=== PATIENT | female | born 1975 | race Caucasian/White ===

== ENCOUNTER → 2018-10-21 | Outpatient (CLI) | payer BC | LOC: FIMAGING 07:48 | PROVIDERS: ATTEND Orthopaedic Surgery | DX: Z01.818 Encounter for other preprocedural examination (principal); M16.11 Unilateral primary osteoarthritis, right hip ==

== ENCOUNTER 2018-11-03 06:00 | Inpatient (IN) | payer BC ==
[~2018-11-03 06:00] MED LIST: ROPIVACAINE 0.2% 80 MG, EPINEPHrine 0.2 MG, KETOROLAC TROMETHAMINE 30 MG in SYRINGE 0 ML IU ONE; TRANEXAMIC ACID 3,000 MG in NS (SYRINGE) 50 ML IRR ONE
--- NOTE | 2018-11-03 06:17 | PDHPUP ---
History & Physical Update H&P update statement: This history and physical update is based on an assessment of the patient which was completed after admission or registration (within 24 hours), but prior to the surgery/procedure. H&P update: H&P reviewed & patient examined, no change in patient's condition since H&P completed
[2018-11-03] MEDS ORDERED: DEXAMETHASONE 4 MG/ML VIAL IVP ONE (06:47)
[2018-11-03] MEDS ORDERED: FAMOTIDINE 20 MG TAB PO ONE (06:47)
[2018-11-03] MEDS ORDERED: ACETAMINOPHEN 325 MG TAB PO ONE (06:47)
[2018-11-03] MEDS ORDERED: ceFAZolin 2 GM/DEXTROSE 100 ML IV ONE (06:47)
[2018-11-03] MEDS ORDERED: LR 1,000 ML IV ONE (06:47)
[2018-11-03] MEDS ORDERED: TRANEXAMIC ACID 3,000 MG/50 ML BAG IRR ONE (06:57)
--- NOTE | 2018-11-03 07:22 | PDANEPAE ---
ANE Past Medical History - Cardiovascular History Hx Hypertension: No Hx Arrhythmias: No Hx Chest Pain: No Hx Coronary Artery / Peripheral Vascular Disease: No Hx CHF / Valvular Disease: No Hx Palpitations: No - Pulmonary History Hx COPD: No Hx Asthma/Reactive Airway Disease: No Hx Recent Upper Respiratory Infection: No Hx Oxygen in Use at Home: No Hx Sleep Apnea: No Sleep Apnea Screening Result - Last Documented: Negative - Neurologic History Hx Cerebrovascular Accident: No Hx Seizures: No Hx Dementia: No - Endocrine History Hx Diabetes: No - Renal History Hx Renal Disorders: No - Liver History Hx Hepatic Disorders: No - Neurological & Psychiatric Hx Hx Neurological and Psychiatric Disorders: No - Cancer History Hx Cancer: No - Congenital Disorder History Hx Congenital Disorders: No - GI History Hx Gastrointestinal Disorders: No - Other Health History Other Health History: none - Chronic Pain History Chronic Pain: No - Surgical History Prior Surgeries: right hip labral repair 2014 LI Review of Systems Review of Systems: - Exercise capacity METS (RN): 6 METS ANE Patient History - Allergies Allergies/Adverse Reactions: No Known Allergies Allergy (Unverified 10/14/18 11:58) - Home Medications Home Medications: Herbals/Supplements -Info Only 1 ea PO DAILY 10/14/18 [Last Taken 10/20/18] Ibuprofen [Motrin (*)] 400 mg PO DAILY PRN 10/14/18 [Last Taken 10/20/18] Multivitamins [Multivitamin (*)] 1 each PO DAILY 10/14/18 [Last Taken 10/20/18] [place]-3 Fatty Acids [Fish Oil 1000 mg (*)] 1,000 mg PO DAILY 10/14/18 [Last Taken 10/20/18] - NPO status NPO Since - Liquids (Date): 11/03/18 NPO Since - Liquids (Time): 04:00 NPO Since - Solids (Date): 11/02/18 - Smoking Hx Smoking Status: Never smoked - Family Anes Hx Family Hx Anesthesia Complications: none ANE Labs/Vital Signs - Vital Signs Blood Pressure: 101/69 Heart Rate: 60 Respiratory Rate: 15 O2 Sat (%): 98 Height: 160.02 cm Weight: 55.792 kg ANE Physical Exam - Airway Mallampati Score: Class 2 - ASA Status ASA Status: I ANE Anesthesia Plan Anesthesia Plan: spinal
[2018-11-03] MEDS ORDERED: MIDAZOLAM 2 MG/2 ML VIAL ONE (07:38)
[2018-11-03] MEDS ORDERED: PROPOFOL/EMULSION 500 MG/50 ML BOTTLE IV ONE (07:39)
[2018-11-03] MEDS ORDERED: fentaNYL 100 MCG/2 ML INJ ONE ×2 (07:39→09:39)
[2018-11-03] MEDS ORDERED: PHENYLEPHRINE 10 MG/ML SDV ONE (07:40)
[2018-11-03] MEDS ORDERED: ONDANSETRON 4 MG/2 ML VIAL ONE (07:40)
[2018-11-03] MEDS ORDERED: BUPIVACAINE/DEXTROSE 7.5MG/ML 2 ML SPINAL AMP SP ONE (07:41)
[2018-11-03] MEDS ORDERED: PROPOFOL 200 MG/20 ML VIAL ONE (09:05)
[2018-11-03] MEDS ORDERED: BISACODYL 10 MG SUPP PR PRN (09:30)
[2018-11-03] MEDS ORDERED: ONDANSETRON 4 MG/2 ML VIAL IVP PRN ×2 (09:30→09:35)
[2018-11-03] MEDS ORDERED: oxyCODONE IR 5 MG TAB PO PRN (09:30)
[2018-11-03] MEDS ORDERED: LACTULOSE 20 GM/30 ML UDCUP PO PRN (09:30)
[2018-11-03] MEDS ORDERED: PROMETHAZINE HCL 25 MG/ML INJ IVP PRN ×2 (09:30→09:35)
[2018-11-03] MEDS ORDERED: TEMAZEPAM 15 MG CAP PO PRN (09:30)
[2018-11-03] MEDS ORDERED: METOCLOPRAMIDE 10 MG/2 ML VIAL IVP PRN (09:30)
[2018-11-03] MEDS ORDERED: DIPHENOXYLATE/ATROPINE LOMOTIL 1 TAB PO PRN (09:30)
[2018-11-03] MEDS ORDERED: PROMETHAZINE HCL 25 MG SUPPR PR PRN (09:30)
[2018-11-03] MEDS ORDERED: LR 1,000 ML IV SCH (09:30)
[2018-11-03] MEDS ORDERED: CYCLOBENZAPRINE 10 MG TAB PO PRN (09:30)
[2018-11-03] MEDS ORDERED: POLYETHYLENE GLYCOL 3350 17 GM PKT PO PRN (09:30)
[2018-11-03] MEDS ORDERED: MAGNESIUM HYDROXIDE 30 ML UDCUP PO PRN (09:30)
[2018-11-03] MEDS ORDERED: diphenhydrAMINE 25 MG CAP PO PRN (09:30)
[2018-11-03] MEDS ORDERED: ONDANSETRON DISINTEGRATING 4 MG TAB PO PRN (09:30)
--- NOTE | 2018-11-03 09:30 | POSTOPPROG ---
Post Op Note Date of Operation: 11/03/18 Surgeon: Nan España Warehouse Distribution Manager: nicci españa PA-C Anesthesiologist: dr. cifuentes Anesthesia: Spinal Pre-op Diagnosis: right hip OA Post-op Diagnosis: same Indication: right hip pain Procedure: R LIDA ant approach, robot assisted Findings: severe hip OA Inf/Abcess present in the surg proc area at time of surgery?: No EBL: 100-500
[2018-11-03] MEDS ORDERED: NALOXONE HCL 0.4 MG/ML INJ IVP PRN (09:35)
[2018-11-03] MEDS ORDERED: DEXAMETHASONE 4 MG/ML VIAL IVP PRN (09:35)
[2018-11-03] MEDS ORDERED: LR 500 ML IV PRN (09:35)
[2018-11-03] MEDS ORDERED: HYDROmorphONE/DILAUDID 2 MG/ML INJ IVP PRN (09:35)
[2018-11-03] MEDS ORDERED: PHENYLEPHRINE HCL 100 MCG/ML SYR IVP PRN (09:35)
[2018-11-03] MEDS ORDERED: fentaNYL 100 MCG/2 ML INJ IVP PRN (09:35)
--- NOTE | 2018-11-03 09:36 | POSTANESTH ---
Post Anesthetic Evaluation Cardiovascular Status: Normal, Stable Respiratory Status: Normal, Stable Level of Consciousness/Mental Status: Can Participate in Eval Pain Control: Adequate, Prn Tx Ordered Nausea/Vomiting Control: Adequate, Prn Tx Ordered Complications Possibly Related to Anesthesia: None Noted
[2018-11-03] MEDS ORDERED: oxyCODONE IR 5 MG TAB ONE (10:05)
--- NOTE | 2018-11-03 11:31 | PDMN ---
Medical Necessity Medical necessity: [facility] [place] S560 hip arthroplasty INPT only list OP: R LIDA
[2018-11-03] MEDS: ACETAMINOPHEN 325 MG TAB PO SCH ×2 (15:48→21:40)
[2018-11-03] MEDS: ceFAZolin 2 GM/DEXTROSE 100 ML IV SCH (15:50)
[2018-11-03] MEDS: ASPIRIN 81 MG CHEWABLE TAB PO SCH (21:41)
[2018-11-03] MEDS: SENNOSIDES/DOCUSATE SODIUM TAB PO SCH (21:41)
[2018-11-03] MEDS: FAMOTIDINE 20 MG TAB PO SCH (21:41)
[2018-11-04] MEDS: ceFAZolin 2 GM/DEXTROSE 100 ML IV SCH (00:04)
[2018-11-04] MEDS: ACETAMINOPHEN 325 MG TAB PO SCH ×2 (05:09→09:01)
[2018-11-04 07:42] VITALS: BP 95/53
--- NOTE | 2018-11-04 08:38 | SOAPPROG ---
SOAP Progress Note Assessment/Plan: Assessment: Patient is doing well POD 1 s/p RTHA Pain management: pain is well controlled on oral pain meds. VTE ppx: recommend 81 mg aspirin morning and evening for 4 weeks, cont LISE and SCDs Anemia: level is expected initially postop. Asymptomatic. Continue to monitor D/c planning:patient has done much better than anticipated. Patient is stable, BP stable, pain well controlled and patient is eager for discharge to home. December d/c to home today pending release from PT Plan: 11/04/18 08:35 Subjective: No nausea, vomiting, shortness of breath or chest pain Objective: Vital Signs Temp Pulse Resp BP Pulse Ox 36.9 C 68 14 95/53 L 95 11/04/18 07:42 11/04/18 07:42 11/04/18 07:42 11/04/18 07:42 11/04/18 07:42 Laboratory Results 11/04/18 05:24 11/03/18 11/04/18 11/05/18 05:59 05:59 05:59 Intake Total 2000 Output Total 1550 450 Balance 450 -450 RLE: incision dressing clean and dry, positive PF/DF, NVI ICD10 Worksheet Patient Problems: Problems Problem Status Onset Primary osteoarthritis of right hip Acute
[2018-11-04] MEDS: ASPIRIN 81 MG CHEWABLE TAB PO SCH (09:00)
[2018-11-04] MEDS: FAMOTIDINE 20 MG TAB PO SCH (09:02)
[2018-11-04] MEDS: SENNOSIDES/DOCUSATE SODIUM TAB PO SCH (09:02)
--- NOTE | 2018-11-04 09:58 | ASMTLACE ---
ZOHREH Length of stay for Answers: 2 days current admission Acuity / Level of Answers: Yes Care: Did the patient have an inpatient admission? # of Emergency department Answers: 0 visits in the last 6 months Score: 5 Date Signed: 11/04/2018 09:58 AM Electronically Signed By:MONSTER Jackson
--- NOTE | 2018-11-04 10:56 | GDS ---
[f rep st] DISCHARGE SUMMARY ADMISSION DIAGNOSIS: Right hip osteoarthritis. DISCHARGE DIAGNOSIS: Right hip osteoarthritis. PROCEDURE: Right total hip arthroplasty, robotic assisted. VTE PROPHYLAXIS: Recommend aspirin 81 mg twice daily for 4 weeks. BRIEF DESCRIPTION OF HOSPITAL STAY: Patient was admitted for an elective joint arthroplasty. The pa tomasa tolerated the procedure well and has passed physical therapy. The patient was given appropriat e antibiotic prophylaxis and venous thromboembolism prophylaxis. The patient's pain was well control led on oral pain medication, patient was holding down food, and had urinated. Decision was made to d ischarge the patient. The patient was given post-operative prescriptions pre-operatively. PLAN: Please follow up as scheduled with Dr. Llamas's office, November 25, at 8:45 a.m. /[id number]/MODL
--- NOTE | 2018-11-04 16:33 | GOP ---
[f rep st] OPERATIVE REPORT DATE OF OPERATION: 11/03/2018 SURGEON: Shayna Llamas MD POWER PLANT MANAGER: Jeanne Llamas PA-C, and Kami Dias PA-C. ANESTHESIA: Spinal. PREOPERATIVE DIAGNOSIS: Right hip osteoarthritis. POSTOPERATIVE DIAGNOSIS: Right hip osteoarthritis. PROCEDURE PERFORMED: Total hip arthroplasty with computer navigation. FINDINGS: ESTIMATED BLOOD LOSS: 300 cc. INDICATIONS: The patient has progressively worsening arthritis of the hip which has failed medical m anagement. The patient understands the treatment option including continued non-operative care and h as selected surgical intervention. The patient has decided to undergo total hip arthroplasty via the direct anterior approach understanding the risks of the procedure including, but not limited to, abby rovascular injury, infection, persistent pain, component wear and loosening, deep venous thrombosis, pulmonary embolism, limb length inequality (including dislocation), and intraoperative fractures. DESCRIPTION OF PROCEDURE: After proper identification of the patient including verification and anabel ing the surgical site, the patient was brought to the operating room and placed in the supine positio n. All bony prominences were well padded. Anesthesia was induced without complication and intraveno us prophylactic antibiotics were administered prior to skin incision. After prepping and draping in the usual sterile fashion, attention was drawn to the contralateral pel vis for attachment of the computer navigation tracker. Three percutaneous incisions were made over t he iliac crest and the pelvic tracker was affixed using threaded 3.5 mm pins yielding excellent fixat ion. Using computer navigation the patient's leg length and topographical pelvic anatomy was registe red without complication. Attention was then drawn to surgical exposure of the hip. An incision was made with a #10 Bard Yeni r blade starting 3 cm lateral and 3 cm distal to the anterior superior iliac spine measuring 8 cm to 10 cm and coursing distally toward the greater trochanter. The skin and subcutaneous tissues were di vided sharply down the fascia maureen. The fascia maureen was incised in line with the skin incision expos ing the underlying tensor fascia maureen muscle. This muscle was bluntly elevated from the fascia and t he first extracapsular Cobra retractor was placed laterally at the junction of the superior femoral n noemi and greater trochanter. The lateral femoral circumflex vessels were identified, cauterized and d ivided with the Aquamantys bipolar cautery. The deep investing fascia of the TFL was divided to allo w proper mobilization of the muscle preventing damage during retraction. The reflected head of the r ectus femoris muscle was elevated off the anterior hip capsule and a medial Cobra retractor was place d just proximal to the lesser trochanter. The anterior capsulotomy was made sharply from the superolateral acetabulum to the saddle junction of the superior femoral neck and greater trochanter, then coursing inferomedial towards the lesser troc hanter. The retractors were then placed in the intracapsular position for femoral neck osteotomy. C orresponding to preoperative templating the osteotomy was made with the oscillating saw protecting th e greater trochanter and soft tissues. The femoral head was removed from the acetabulum with a corks crew and confirmed to be severely arthritic with exposed bone, deformity and osteophytes. Similar fi ndings were confirmed in the acetabulum. The Arch table extension was then placed in 40 degrees external rotation. Attention was then drawn t o the acetabular preparation. After placement of the anterior and posterior Cobra retractors outside the labrum and intrascapular the circumferential labrum was removed sharply. The foveal contents we re then removed and hemostasis obtained with cautery. The anatomy of the acetabulum was then registe red using computer navigation. The first reamer selected was sized using the removed femoral head. Reaming began with robotic racheal t at 40 degrees of abduction and 20 degrees of anteversion using computer navigation. Reaming ceased 0 mm less than the definitive acetabular component. The final acetabular component was inserted usi ng the computer to achieve proper orientation yielding excellent purchase and stability in the acetab ulum. The final acetabular liner was then placed and its seating confirmed. Attention was then turned to the femur. The Arch table extension was placed in extension and adducti on delivering the osteotomized femoral neck into the wound. A 2-pronged femoral elevator was placed at the calcar and another at the tip of the greater trochanter. The posterolateral capsule was relea sed with cautery allowing mobilization of the femur lateral and anterior for preparation. The cutting inspector al rotators were visualized and preserved. A curette and rongeur were used to open the starting poin t for broaching. Serial broaching started with the #0 broach and ended with the broach that exhibited excellent fit in the proximal femur. A change in pitch during mallet strikes was accompanied by the inability to advance the broach any further. The trial reduction was performed and fluoroscopic maura igation was utilized to check limb length. Adjustments were made to equalize limb length accordingly . After the final trials were accepted they were removed and the wound was copiously lavaged. The femo ral component was seated to the same depth as the final broach and the femoral head was impacted onto the clean trunnion. The hip was then reduced for the final time and once more fluoroscopic navigati on used to check that limb length equality was achieved. The wound was irrigated and closed in layers, the fascia maureen with 2-0 Quill, the subcutaneous tissue with a 2-0 Quill, and the skin with Dermabond, including the small incisions for computer navigation . Sterile dressings were applied. Final sharps and sponge counts were accurate. The patient was th en transferred to a hospital bed and brought to the recovery room in stable condition. IMPLANTS: Accolade II size 3 at 127, acetabular component of a Trident II 48 mm. Head was a Biolox Delta 32 mm +0. Liner is a Trident X3, 32 mm. /[id number]/MODL
== END 2018-11-04 10:54 | disposition home or self-care (01) | DRG 470 ==
LOC: FSGY 06:00 → EDSTATUS 08:00 → F3E 09:30 → F3N 10:24
PROVIDERS: ADMIT Orthopaedic Surgery; ATTEND Orthopaedic Surgery
PROC: 0SR904Z Replacement of Right Hip Joint with Ceramic on Polyethylene Synthetic Substitute, Open Approach (ICD-10-PCS; principal; 2018-11-03 08:00)
PROC: 8E0Y0CZ Robotic Assisted Procedure of Lower Extremity, Open Approach (ICD-10-PCS; principal; 2018-11-03 08:00)
DX: M16.11 Unilateral primary osteoarthritis, right hip (principal)
CPT/HCPCS: 97116-GP; 97161-GP; J0171; J0690; J1100; J1885; J2250; J2370; J2405; J2704; J2795; J3010

== ENCOUNTER → 2018-12-16 | Outpatient (CLI) | payer BC | LOC: FIMAGING 10:29 | PROVIDERS: ATTEND Orthopaedic Surgery | DX: M16.12 Unilateral primary osteoarthritis, left hip (principal) ==

== ENCOUNTER 2018-12-29 08:00 | Inpatient (IN) | payer BC ==
[2018-12-29] MEDS ORDERED: TRANEXAMIC ACID 3,000 MG/50 ML BAG IRR ONE (10:15)
[2018-12-29] MEDS ORDERED: ceFAZolin 2 GM/DEXTROSE 100 ML IV ONE (11:21)
[2018-12-29] MEDS ORDERED: DEXAMETHASONE 4 MG/ML VIAL IVP ONE (11:21)
[2018-12-29] MEDS ORDERED: ACETAMINOPHEN 325 MG TAB PO ONE (11:21)
[2018-12-29] MEDS ORDERED: FAMOTIDINE 20 MG TAB PO ONE (11:21)
[2018-12-29] MEDS ORDERED: LR 1,000 ML IV ONE (11:22)
[2018-12-29] MEDS ORDERED: PROPOFOL/EMULSION 500 MG/50 ML BOTTLE IV ONE ×2 (12:12→13:56)
[2018-12-29] MEDS ORDERED: DEXAMETHASONE 4 MG/ML VIAL ONE (12:12)
[2018-12-29] MEDS ORDERED: fentaNYL 100 MCG/2 ML INJ ONE ×2 (12:12→14:19)
[2018-12-29] MEDS ORDERED: ONDANSETRON 4 MG/2 ML VIAL ONE (12:12)
[2018-12-29] MEDS ORDERED: LIDOCAINE 2% 100 MG/5 ML SYR ONE (12:12)
[2018-12-29] MEDS ORDERED: BUPIVACAINE 0.5% 30 ML SDV ONE (12:38)
[2018-12-29] MEDS ORDERED: MIDAZOLAM 2 MG/2 ML VIAL ONE (13:08)
[2018-12-29] MEDS ORDERED: MIDAZOLAM 2 MG/2 ML VIAL IVP ONE (13:16)
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
[2018-12-29] MEDS ORDERED: oxyCODONE IR 5 MG TAB PO PRN ×2 (15:03→15:09)
[2018-12-29] MEDS ORDERED: fentaNYL 100 MCG/2 ML INJ IVP PRN (15:03)
[2018-12-29] MEDS ORDERED: LR 500 ML IV PRN (15:03)
[2018-12-29] MEDS ORDERED: PROMETHAZINE HCL 25 MG/ML INJ IVP PRN ×2 (15:03→15:09)
[2018-12-29] MEDS ORDERED: ACETAMINOPHEN 500 MG TAB PO PRN (15:03)
[2018-12-29] MEDS ORDERED: NALOXONE HCL 0.4 MG/ML INJ IVP PRN (15:03)
[2018-12-29] MEDS ORDERED: MEPERIDINE 25 MG/0.5 ML AMP IVP PRN (15:03)
[2018-12-29] MEDS ORDERED: HYDROmorphONE/DILAUDID 1 MG/ML INJ IVP PRN (15:03)
[2018-12-29] MEDS ORDERED: METOCLOPRAMIDE 10 MG/2 ML VIAL IVP PRN ×2 (15:03→15:09)
[2018-12-29] MEDS ORDERED: DIAZEPAM 10 MG/2 ML SYR IVP PRN (15:03)
[2018-12-29] MEDS ORDERED: BISACODYL 10 MG SUPP PR PRN (15:09)
[2018-12-29] MEDS ORDERED: MAGNESIUM HYDROXIDE 30 ML UDCUP PO PRN (15:09)
[2018-12-29] MEDS ORDERED: ONDANSETRON 4 MG/2 ML VIAL IVP PRN (15:09)
[2018-12-29] MEDS ORDERED: POLYETHYLENE GLYCOL 3350 17 GM PKT PO PRN (15:09)
[2018-12-29] MEDS ORDERED: DIPHENOXYLATE/ATROPINE LOMOTIL 1 TAB PO PRN (15:09)
[2018-12-29] MEDS ORDERED: ONDANSETRON DISINTEGRATING 4 MG TAB PO PRN (15:09)
[2018-12-29] MEDS ORDERED: CYCLOBENZAPRINE 10 MG TAB PO PRN (15:09)
[2018-12-29] MEDS ORDERED: LACTULOSE 20 GM/30 ML UDCUP PO PRN (15:09)
[2018-12-29] MEDS ORDERED: TEMAZEPAM 15 MG CAP PO PRN (15:09)
[2018-12-29] MEDS ORDERED: PROMETHAZINE HCL 25 MG SUPPR PR PRN (15:09)
[2018-12-29] MEDS ORDERED: diphenhydrAMINE 25 MG CAP PO PRN (15:09)
--- NOTE | 2018-12-29 15:09 | POSTOPPROG ---
Post Op Note Date of Operation: 12/29/18 Surgeon: Nan Llamas Threading Machine Setter: Wen JUNIOR Anesthesiologist: Dr. Edwards Anesthesia: Spinal Pre-op Diagnosis: left hip OA Post-op Diagnosis: same Indication: left hip pain Procedure: LTHA, robot assisted Findings: severe OA of left hip Inf/Abcess present in the surg proc area at time of surgery?: No EBL: 50-100
--- NOTE | 2018-12-29 15:17 | POSTANESTH ---
Post Anesthetic Evaluation Cardiovascular Status: Normal, Stable Respiratory Status: Normal, Stable Level of Consciousness/Mental Status: Can Participate in Eval, Moderately Sleepy Pain Control: Adequate, Prn Tx Ordered Nausea/Vomiting Control: Adequate, Prn Tx Ordered Complications Possibly Related to Anesthesia: None Noted
[2018-12-29] MEDS ORDERED: LR 1,000 ML IV SCH (15:30)
--- NOTE | 2018-12-29 21:32 | PDMN ---
Medical Necessity Medical necessity: Pt meets inpt criteria per MD order and [facility] [place] S-560, Hip Arthroplasty, A-2 days, MCR IP only list, 43 y/o w/severe OA of L hip admitted for L LIDA, robot assisted and post-op care, pre-authed for inpt.
[2018-12-29] MEDS: SENNOSIDES/DOCUSATE SODIUM TAB PO SCH (22:29)
[2018-12-29] MEDS: ASPIRIN 81 MG CHEWABLE TAB PO SCH (22:29)
[2018-12-29] MEDS: ACETAMINOPHEN 325 MG TAB PO SCH (22:30)
[2018-12-29] MEDS: FAMOTIDINE 20 MG TAB PO SCH (22:30)
[2018-12-29] MEDS: ceFAZolin 2 GM/DEXTROSE 100 ML IV SCH (22:31)
[2018-12-30] MEDS: ACETAMINOPHEN 325 MG TAB PO SCH ×2 (03:54→10:19)
[2018-12-30] MEDS: ceFAZolin 2 GM/DEXTROSE 100 ML IV SCH (05:38)
[2018-12-30 07:49] VITALS: BP 77/50
[2018-12-30] MEDS: SENNOSIDES/DOCUSATE SODIUM TAB PO SCH (10:18)
[2018-12-30] MEDS: ASPIRIN 81 MG CHEWABLE TAB PO SCH (10:20)
[2018-12-30] MEDS: FAMOTIDINE 20 MG TAB PO SCH (10:21)
--- NOTE | 2018-12-30 11:56 | SOAPPROG ---
SOAP Progress Note Assessment/Plan: Assessment: s/p left LIDA, anterior approach, Kelvin assist - POD 1 - doing better than expected Anemia - expected initially postop. Asymptomatic. Continue to monitor Plan: d/c home today, will have support of family. Recently had right LIDA and is familiar with the recovery. Must be cleared by PT Continue VTE ppx - aspirin 81 mg BID x 4 weeks, LISE hose x 2 weeks Continue pain medication - flexeril, oxycodone, tylenol, celebrex 12/30/18 11:57 Subjective: Patient states her left hip is feeling good, she feels comfortable enough to go home. She had her right hip replaced about 8 weeks ago and is familiar with the recovery. She denies SOB, CP, fever and chills. Objective: Vital Signs Temp Pulse Resp BP Pulse Ox 36.5 C 64 16 77/50 L 99 12/30/18 07:49 12/30/18 07:49 12/30/18 07:49 12/30/18 07:49 12/30/18 07:49 Laboratory Results 12/30/18 05:26 12/29/18 12/30/18 12/31/18 05:59 05:59 05:59 Intake Total 3290 200 Output Total 150 300 Balance 3140 -100 Patient resting comfortably in bed, no acute distress. LLE: Wound dressings are clean, dry and intact. Skin intact, no signs of infections. Lower leg compartments are soft and nontender. She can actively DF and PF her left foot and great toe against resistance. Grossly NVI distally. ICD10 Worksheet Patient Problems: Problems Problem Status Onset Primary osteoarthritis of right hip Acute Unilateral primary osteoarthritis, left hip Acute
--- NOTE | 2018-12-30 12:02 | PDDCSUM ---
Discharge Summary Discharge Summary: ADMISSION DIAGNOSIS: Left hip severe degenerative arthritis DISCHARGE DIAGNOSIS: Left hip severe degenerative arthritis OPERATION PERFORMED: December 29, 2018 total hip arthroplasty, anterior approach, Kelvin assist POSTOPERATIVE COMPLICATIONS: None CONDITION ON DISCHARGE: Improved HPI: The patient is a 43 year old female who has end-stage arthritis of her left hip. Clinical and radiographic features are consistent with this. Patient has failed attempts at conservative management, therefore, recommended operative left total hip replacement. DESCRIPTION OF HOSPITAL COURSE: The patient was admitted to the hospital on the morning of surgery and underwent a left total hip arthroplasty, anterior approach, Kelvin assist. Postoperatively, patient was treated with multimodal DVT prophylaxis, including aspirin 81 mg BID, SCDs and LISE hose. Patient was seen by PT and made good progress with ambulation and stairs. On the first post- operative day the patients H&H was 10.6/30.7. Patient was able to void spontaneously. At the time of discharge, patient was afebrile, wound was clean and dry. Patient is walking with a walker. DISPOSITION: The patient is discharged home and may have outpatient PT in approximately 3 weeks. Patient may progress to full weightbearing on the left lower extremity as tolerated. LISE stockings for 2 weeks during the daytime. Aspirin 81 mg BID for 4 weeks. Patient has prescriptions for Celebrex, oxycodone , flexeril for pain control and muscle spasms. The patient will be seen by Dr. Taveras office in approximately 3 weeks. If there are any problems, patient is to call Dr. Taveras office.
--- NOTE | 2018-12-30 13:06 | GOP ---
[f rep st] OPERATIVE REPORT DATE OF OPERATION: 12/29/2018 SURGEON: Shayna Llamas MD [employer] AGENT: Kami Dias P.A.-c ANESTHESIA: Spinal. PREOPERATIVE DIAGNOSIS: Left hip osteoarthrosis. POSTOPERATIVE DIAGNOSIS: Left hip osteoarthrosis. PROCEDURE PERFORMED: Total hip arthroplasty with computer navigation, robotic assist. FINDINGS: ESTIMATED BLOOD LOSS: 200 cc. INDICATIONS: The patient has progressively worsening arthritis of the hip which has failed medical m anagement. The patient understands the treatment option including continued non-operative care and h as selected surgical intervention. The patient has decided to undergo total hip arthroplasty via the direct anterior approach understanding the risks of the procedure including, but not limited to, abby rovascular injury, infection, persistent pain, component wear and loosening, deep venous thrombosis, pulmonary embolism, limb length inequality (including dislocation), and intraoperative fractures. DESCRIPTION OF PROCEDURE: After proper identification of the patient including verification and anabel ing the surgical site, the patient was brought to the operating room and placed in the supine positio n. All bony prominences were well padded. Anesthesia was induced without complication and intraveno us prophylactic antibiotics were administered prior to skin incision. After prepping and draping in the usual sterile fashion, attention was drawn to the contralateral pel vis for attachment of the computer navigation tracker. Three percutaneous incisions were made over t he iliac crest and the pelvic tracker was affixed using threaded 3.5 mm pins yielding excellent fixat ion. Using computer navigation the patient's leg length and topographical pelvic anatomy was registe red without complication. Attention was then drawn to surgical exposure of the hip. An incision was made with a #10 Bard Yeni r blade starting 3 cm lateral and 3 cm distal to the anterior superior iliac spine measuring 8 cm to 10 cm and coursing distally toward the greater trochanter. The skin and subcutaneous tissues were di vided sharply down the fascia maureen. The fascia maureen was incised in line with the skin incision expos ing the underlying tensor fascia maureen muscle. This muscle was bluntly elevated from the fascia and t he first extracapsular Cobra retractor was placed laterally at the junction of the superior femoral n noemi and greater trochanter. The lateral femoral circumflex vessels were identified, cauterized and d ivided with the Aquamantys bipolar cautery. The deep investing fascia of the TFL was divided to allo w proper mobilization of the muscle preventing damage during retraction. The reflected head of the r ectus femoris muscle was elevated off the anterior hip capsule and a medial Cobra retractor was place d just proximal to the lesser trochanter. The anterior capsulotomy was made sharply from the superolateral acetabulum to the saddle junction of the superior femoral neck and greater trochanter, then coursing inferomedial towards the lesser troc hanter. The retractors were then placed in the intracapsular position for femoral neck osteotomy. C orresponding to preoperative templating the osteotomy was made with the oscillating saw protecting th e greater trochanter and soft tissues. The femoral head was removed from the acetabulum with a corks crew and confirmed to be severely arthritic with exposed bone, deformity and osteophytes. Similar fi nding was confirmed in the acetabulum. The Arch table extension was then placed in 40 degrees external rotation. Attention was then drawn t o the acetabular preparation. After placement of the anterior and posterior Cobra retractors outside the labrum and intrascapular the circumferential labrum was removed sharply. The foveal contents we re then removed and hemostasis obtained with cautery. The anatomy of the acetabulum was then registe red using computer navigation. The first reamer selected was sized using the removed femoral head. Reaming began with robotic racheal t at 40 degrees of abduction and 20 degrees of anteversion using computer navigation. Reaming ceased 0 mm less than the definitive acetabular component. The final acetabular component was inserted usi ng the computer to achieve proper orientation yielding excellent purchase and stability in the acetab ulum. The final acetabular liner was then placed and its seating confirmed. Attention was then turned to the femur. The Arch table extension was placed in extension and adducti on delivering the osteotomized femoral neck into the wound. A 2-pronged femoral elevator was placed at the calcar and another at the tip of the greater trochanter. The posterolateral capsule was relea sed with cautery allowing mobilization of the femur lateral and anterior for preparation. The shop mechanic helper al rotators were visualized and preserved. A curette and rongeur were used to open the starting poin t for broaching. Serial broaching started with the #0 broach and ended with the broach that exhibited excellent fit in the proximal femur. A change in pitch during mallet strikes was accompanied by the inability to advance the broach any further. The trial reduction was performed and fluoroscopic maura igation was utilized to check limb length. Adjustments were made to equalize limb length accordingly . After the final trials were accepted they were removed and the wound was copiously lavaged. The femo ral component was seated to the same depth as the final broach and the femoral head was impacted onto the clean trunnion. The hip was then reduced for the final time and once more fluoroscopic navigati on used to check that limb length equality was achieved. The wound was irrigated and closed in layers, the fascia maureen with 2-0 Quill, the subcutaneous tissue with a 2-0 Quill, and the skin with Dermabond, including the small incisions for computer navigation . Sterile dressings were applied. Final sharps and sponge counts were accurate. The patient was th en transferred to a hospital bed and brought to the recovery room in stable condition. IMPLANTS: Accolade II, size 2 at 127. Acetabular component is a Trident II 50 mm. Liner is a Tride nt X3, 32 mm. Head is a Biolox Delta 32 mm, +0. /[id number]/MODL
--- NOTE | 2018-12-30 14:03 | ASMTLACE ---
[facility]OH[facility] Length of stay for Answers: 2 days current admission Acuity / Level of Answers: Yes Care: Did the patient have an inpatient admission? # of Emergency department Answers: 0 visits in the last 6 months Score: 5 Date Signed: 12/30/2018 02:03 PM Electronically Signed By:MONSTER Jackson
== END 2018-12-30 11:17 | disposition home or self-care (01) | DRG 470 ==
LOC: F3N 11:02
PROVIDERS: ADMIT Orthopaedic Surgery; ATTEND Orthopaedic Surgery
DX: M16.12 Unilateral primary osteoarthritis, left hip (principal); Z96.641 Presence of right artificial hip joint
CPT/HCPCS: 97161-GP; J0171; J0690; J1100; J1885; J2001; J2250; J2405; J2704; J2795; J3010